=== PATIENT | female | born 1970 | race Caucasian/White ===

== ENCOUNTER 2019-09-20 10:56 | Inpatient (IN) | payer MEDICARE, MEDICAID ==
[~2019-09-20] VITALS: Ht 162.6 cm; Wt 76.2 kg
[2019-09-20] MEDS ORDERED: ZOLPIDEM TARTRATE 10 MG TABLET PO PRN (13:15)
[2019-09-20] MEDS: LORazepam 2 MG TABLET PO PRN (14:53)
[2019-09-20] MEDS: HALOPERIDOL 5 MG TABLET PO PRN (14:53)
[2019-09-20 16:09] VITALS: BP 127/70
[2019-09-20] MEDS ORDERED: PERMETHRIN 1% 60 ML LOTION TP ONE (18:00)
[2019-09-20] MEDS ORDERED: PERMETHRIN 5% 60 GM CREAM TP ONE (18:00)
[2019-09-21] MEDS ORDERED: LORazepam 2 MG/ML VIAL ONE (02:42)
[2019-09-21] MEDS ORDERED: DiphenhydrAMINE HCL 50 MG/ML VIAL ONE (02:42)
[2019-09-21] MEDS ORDERED: HALOPERIDOL LACTATE 5 MG/ML VIAL ONE (02:43)
[2019-09-21] MEDS ORDERED: LORazepam 2 MG/ML VIAL IM ONE (03:00)
[2019-09-21] MEDS ORDERED: DiphenhydrAMINE HCL 50 MG/ML VIAL IM ONE (03:00)
[2019-09-21] MEDS ORDERED: HALOPERIDOL LACTATE 5 MG/ML VIAL IM ONE (03:00)
[2019-09-21 03:22] VITALS: BP 138/82
[2019-09-21 08:34] VITALS: BP 114/80
[2019-09-21 08:52] LABS: BASOPHILS % (AUTO) 0.3 % (0.0-2.0); HEMATOCRIT 35.3 % (36-46); HEMOGLOBIN 11.6 g/dL (12.0-16.0); LYMPHOCYTES # (AUTO) 1.9 K/uL (1.0-4.8); LYMPHOCYTES % (AUTO) 37.4 % (22.0-44.0); MEAN CORPUSCULAR HEMOGLOBIN 27.3 pg (26.0-34.0); MEAN CORPUSCULAR HGB CONC 32.7 G/dL (31.0-37.0); MEAN CORPUSCULAR VOLUME 84 fL (80-100); MONOCYTES # (AUTO) 0.4 K/uL (0.1-1.0); MONOCYTES % (AUTO) 8.7 % (2.0-9.0); NEUTROPHILS # (AUTO) 2.4 K/uL (1.8-7.7); NEUTROPHILS % (AUTO) 45.6 % (40.0-70.0); PLATELET COUNT (AUTO) 245 K/uL (150-450); RED BLOOD CELL COUNT(AUTO) 4.23 MIL/uL (4.00-5.20); RED CELL DISTRIBUTION WIDTH 16.2 % (11.5-14.5)
[2019-09-21 09:46] LABS: ALANINE AMINOTRANSFERASE 31 U/L (12-78); ALKALINE PHOSPHATASE 78 U/L (46-116); ANION GAP 6 mmol/L (8-16); ASPARTATE AMINOTRANSFERASE 36 U/L (15-37); BILIRUBIN,TOTAL 0.3 mg/dL (0.1-1.0); CALCIUM, TOTAL 8.7 mg/dL (8.8-10.5); CARBON DIOXIDE 28 mmol/L (22-29); CHLORIDE 106 mmol/L (98-107); CHOL/HDL RATIO 3.2 (3.9-5.7); CHOLESTEROL 143 mg/dL (131-200); CREATININE 0.97 mg/dL (0.60-1.30); GLOMERULAR FILTR. RATE CALC > 60 mL/min (>60); GLUCOSE,RANDOM 95 mg/dL (70-110); HDL CHOLESTEROL 45 mg/dL (40-60); LDL CHOL (CALC.) 76 mg/dL (0-130); POTASSIUM 3.9 mmol/L (3.5-5.1); SODIUM SERUM 140 mmol/L (136-145); TOTAL PROTEIN, SERUM 6.5 g/dL (6.4-8.2); TRIGLYCERIDES 112 mg/dL (15-150); UREA NITROGEN, BLOOD 18 mg/dL (7-18)
[2019-09-21] MEDS: RisperiDONE 2 MG TABLET PO SCH ×2 (12:45→20:45)
[2019-09-21 13:51] LABS: HEMOGLOBIN A1C 5.5 % (3.8-5.6)
[2019-09-21] MEDS ORDERED: LOPERAMIDE HCL 2 MG CAPSULE PO PRN (14:00)
[2019-09-21] MEDS ORDERED: ACETAMINOPHEN 325 MG TABLET PO PRN (14:00)
[2019-09-21] MEDS ORDERED: CloNIDine HCL 0.1 MG TABLET PO PRN (14:00)
[2019-09-21] MEDS ORDERED: DOCUSATE SODIUM 100 MG CAPSULE PO PRN (14:00)
[2019-09-21] MEDS ORDERED: MAGNESIUM HYDROXIDE SUSPENSION 30 ML UDCUP PO PRN (14:00)
[2019-09-21] MEDS ORDERED: ONDANSETRON HCL 4 MG TABLET PO PRN (14:00)
[2019-09-21] MEDS ORDERED: PETROLATUM,WHITE 28 GM JELLY TP PRN (14:00)
[2019-09-21] MEDS ORDERED: ALBUTEROL SULFATE HFA 90 MCG/PUFF 8 GM INHALER IH PRN (14:00)
[2019-09-21] MEDS ORDERED: NICOTINE 14 MG/24 HOUR PATCH TD PRN (14:00)
[2019-09-21] MEDS ORDERED: MAG HYDROX/AL HYDROX/SIMETH ES 30 ML SUSPENSION UDCUP PO PRN (14:00)
[2019-09-21] MEDS ORDERED: IBUPROFEN 400 MG TABLET PO PRN (14:00)
[2019-09-21] MEDS ORDERED: GuaiFENesin/D-METHORPHAN [SUGAR-FREE] 200-20MG/10 ML SYRUP UDCUP PO PRN (14:00)
[2019-09-21 16:20] VITALS: BP 122/84
[2019-09-22] MEDS: RisperiDONE 2 MG TABLET PO SCH ×2 (08:04→20:13)
[2019-09-22] MEDS: LORazepam 2 MG TABLET PO PRN (08:04)
[2019-09-22] MEDS: HALOPERIDOL 5 MG TABLET PO PRN (08:05)
[2019-09-22 09:39] VITALS: BP 104/62
[2019-09-22 17:00] VITALS: BP 127/81
[2019-09-23 08:00] VITALS: BP 98/65
[2019-09-23] MEDS: RisperiDONE 2 MG TABLET PO SCH ×2 (11:31→21:08)
[2019-09-23] MEDS: HALOPERIDOL 5 MG TABLET PO PRN (15:51)
[2019-09-23] MEDS: LORazepam 2 MG TABLET PO PRN (15:51)
[2019-09-24] MEDS: RisperiDONE 2 MG TABLET PO SCH ×2 (08:31→20:28)
[2019-09-25] MEDS: RisperiDONE 2 MG TABLET PO SCH ×2 (08:28→20:07)
[2019-09-25] MEDS: LORazepam 2 MG TABLET PO PRN (10:29)
[2019-09-25] MEDS: HALOPERIDOL 5 MG TABLET PO PRN (16:15)
[2019-09-25 18:23] VITALS: BP 118/71
[2019-09-26 08:00] VITALS: BP 110/70
[2019-09-26] MEDS: RisperiDONE 2 MG TABLET PO SCH ×2 (08:24→20:31)
[2019-09-26 16:41] VITALS: BP 115/72
[2019-09-27 02:48] VITALS: BP 128/74
[2019-09-27] MEDS: HALOPERIDOL 5 MG TABLET PO PRN (09:18)
[2019-09-27] MEDS: RisperiDONE 2 MG TABLET PO SCH ×2 (09:18→20:03)
[2019-09-27] MEDS: LORazepam 2 MG TABLET PO PRN (09:19)
[2019-09-27 12:14] VITALS: BP 134/81
[2019-09-27] MEDS ORDERED: PALIPERIDONE PALMITATE 234 MG/1.5 ML SYRINGE IM ONE (15:45)
[2019-09-28] MEDS: RisperiDONE 2 MG TABLET PO SCH ×2 (08:26→20:10)
[2019-09-28 10:15] VITALS: BP 120/81
[2019-09-28] MEDS ORDERED: PALIPERIDONE PALMITATE 234 MG/1.5 ML SYRINGE IM ONE (10:45)
[2019-09-28 12:00] VITALS: BP 102/59
[2019-09-28] MEDS: HALOPERIDOL 5 MG TABLET PO PRN (15:50)
[2019-09-28 16:58] VITALS: BP 115/63
[2019-09-29] MEDS: RisperiDONE 2 MG TABLET PO SCH ×2 (08:28→20:12)
[2019-09-29 09:59] VITALS: BP_SYST 102; BP_SYST 120; BP_DIAS 61; BP_DIAS 78
[2019-09-29 13:20] VITALS: BP 112/77
[2019-09-29 16:46] VITALS: BP 120/78
[2019-09-30 08:33] VITALS: BP 125/82
[2019-09-30] MEDS: RisperiDONE 2 MG TABLET PO SCH ×2 (09:00→20:17)
[2019-09-30] MEDS: BENZTROPINE MESYLATE 1 MG TABLET PO SCH (20:17)
[2019-10-01] MEDS: RisperiDONE 2 MG TABLET PO SCH ×2 (08:19→20:31)
[2019-10-01] MEDS: BENZTROPINE MESYLATE 1 MG TABLET PO SCH ×2 (08:19→20:31)
[2019-10-01 09:00] VITALS: BP 121/73
[2019-10-01] MEDS ORDERED: PALIPERIDONE PALMITATE 156 MG/ML SYRINGE IM ONE (09:00)
[2019-10-01] MEDS: CEPHALEXIN MONOHYDRATE 500 MG CAPSULE PO SCH (18:05)
[2019-10-01 18:08] VITALS: BP 104/62
[2019-10-01 18:37] LABS: APPEARANCE,URINE CLEAR (CLEAR); BILIRUBIN,URINE NEGATIVE (NEGATIVE); GLUCOSE, URINE (UA) NEGATIVE (NEGATIVE); KETONES,URINE NEGATIVE (NEGATIVE); LEUKOCYTE ESTERASE ,URINE NEGATIVE (NEGATIVE); NITRATE,URINE NEGATIVE (NEGATIVE); OCCULT BLOOD,URINE NEGATIVE (NEGATIVE); PROTEIN,URINE NEGATIVE (NEGATIVE); UROBILINOGEN,URINE 0.2 mg/dL (<=1.0)
[2019-10-01 18:40] LABS: BACTERIA,URINE None Seen /HPF (None Seen); RBC,URINE None Seen /HPF (0-2); WBC,URINE None Seen /HPF (0-5)
[2019-10-01] MEDS ORDERED: ACETAMINOPHEN 325 MG TABLET PO PRN (21:45)
[2019-10-02] MEDS: RisperiDONE 2 MG TABLET PO SCH ×2 (08:20→20:29)
[2019-10-02] MEDS: CEPHALEXIN MONOHYDRATE 500 MG CAPSULE PO SCH ×3 (08:20→16:48)
[2019-10-02] MEDS: BENZTROPINE MESYLATE 1 MG TABLET PO SCH ×2 (08:20→20:29)
[2019-10-02 08:35] LABS: BASOPHILS % (AUTO) 0.5 % (0.0-2.0); EOSINOPHILS % (AUTO) 2.3 % (1.0-6.0); HEMATOCRIT 40.5 % (36-46); HEMOGLOBIN 13.5 g/dL (12.0-16.0); LYMPHOCYTES # (AUTO) 2.1 K/uL (1.0-4.8); LYMPHOCYTES % (AUTO) 26.6 % (22.0-44.0); MEAN CORPUSCULAR HEMOGLOBIN 27.4 pg (26.0-34.0); MEAN CORPUSCULAR HGB CONC 33.3 G/dL (31.0-37.0); MEAN CORPUSCULAR VOLUME 82 fL (80-100); MONOCYTES # (AUTO) 0.6 K/uL (0.1-1.0); MONOCYTES % (AUTO) 7.5 % (2.0-9.0); NEUTROPHILS # (AUTO) 4.9 K/uL (1.8-7.7); NEUTROPHILS % (AUTO) 63.1 % (40.0-70.0); PLATELET COUNT (AUTO) 248 K/uL (150-450); RED BLOOD CELL COUNT(AUTO) 4.91 MIL/uL (4.00-5.20)
[2019-10-02] MEDS ORDERED: PALIPERIDONE PALMITATE 156 MG/ML SYRINGE IM ONE (09:00)
[2019-10-02 09:02] VITALS: BP 94/66
[2019-10-02] MEDS ORDERED: PIPERONYL BUTOXIDE/PYRETHRINS 120 ML SHAMPOO TP ONE (11:15)
[2019-10-02 16:00] VITALS: BP 112/64
[2019-10-03] MEDS: BENZTROPINE MESYLATE 1 MG TABLET PO SCH ×2 (08:15→20:11)
[2019-10-03] MEDS: RisperiDONE 2 MG TABLET PO SCH ×2 (08:15→20:11)
[2019-10-03] MEDS: CEPHALEXIN MONOHYDRATE 500 MG CAPSULE PO SCH ×3 (08:15→16:22)
[2019-10-03 09:37] VITALS: BP 117/73
[2019-10-03 16:49] VITALS: BP 109/71
[2019-10-04 08:00] VITALS: BP 134/74
[2019-10-04] MEDS: RisperiDONE 2 MG TABLET PO SCH ×2 (09:42→20:07)
[2019-10-04] MEDS: BENZTROPINE MESYLATE 1 MG TABLET PO SCH ×2 (09:42→20:07)
[2019-10-04] MEDS: CEPHALEXIN MONOHYDRATE 500 MG CAPSULE PO SCH ×3 (09:42→17:35)
[2019-10-04] MEDS ORDERED: PIPERONYL BUTOXIDE/PYRETHRINS 120 ML SHAMPOO TP ONE (10:00)
[2019-10-04 16:00] VITALS: BP 107/69
[2019-10-05 08:00] VITALS: BP 112/75
[2019-10-05] MEDS: CEPHALEXIN MONOHYDRATE 500 MG CAPSULE PO SCH ×3 (08:19→16:38)
[2019-10-05] MEDS: RisperiDONE 2 MG TABLET PO SCH ×2 (08:19→20:23)
[2019-10-05] MEDS: BENZTROPINE MESYLATE 1 MG TABLET PO SCH ×2 (08:19→20:23)
[2019-10-05 16:00] VITALS: BP 122/75
[2019-10-05] MEDS ORDERED: PERMETHRIN 1% 60 ML LOTION TP ONE (21:30)
[2019-10-06 08:00] VITALS: BP 109/61
[2019-10-06] MEDS: CEPHALEXIN MONOHYDRATE 500 MG CAPSULE PO SCH ×3 (08:54→16:47)
[2019-10-06] MEDS: BENZTROPINE MESYLATE 1 MG TABLET PO SCH ×2 (08:54→20:22)
[2019-10-06] MEDS: RisperiDONE 2 MG TABLET PO SCH ×2 (08:54→20:22)
[2019-10-06 16:00] VITALS: BP 134/78
[2019-10-07] MEDS: RisperiDONE 2 MG TABLET PO SCH ×2 (08:06→20:09)
[2019-10-07] MEDS: BENZTROPINE MESYLATE 1 MG TABLET PO SCH ×2 (08:06→20:09)
[2019-10-07] MEDS: CEPHALEXIN MONOHYDRATE 500 MG CAPSULE PO SCH ×3 (08:07→15:59)
[2019-10-07 08:43] VITALS: BP 100/62
[2019-10-07 16:38] VITALS: BP 108/69
[2019-10-08 08:00] VITALS: BP 112/78
[2019-10-08] MEDS: RisperiDONE 2 MG TABLET PO SCH ×2 (08:21→20:33)
[2019-10-08] MEDS: BENZTROPINE MESYLATE 1 MG TABLET PO SCH ×2 (08:21→20:33)
[2019-10-08 16:00] VITALS: BP 120/83
[2019-10-09 08:00] VITALS: BP 107/77
[2019-10-09] MEDS: BENZTROPINE MESYLATE 1 MG TABLET PO SCH ×2 (08:32→20:41)
[2019-10-09] MEDS: RisperiDONE 2 MG TABLET PO SCH ×2 (08:32→20:41)
[2019-10-09] MEDS ORDERED: PERMETHRIN 1% 60 ML LOTION TP ONE (15:30)
[2019-10-09 16:15] VITALS: BP 127/85
[2019-10-10] MEDS: RisperiDONE 2 MG TABLET PO SCH ×2 (08:27→20:23)
[2019-10-10] MEDS: BENZTROPINE MESYLATE 1 MG TABLET PO SCH ×2 (08:27→20:23)
[2019-10-10 09:19] VITALS: BP 106/70
[2019-10-10 16:49] VITALS: BP 107/67
[2019-10-11] MEDS: BENZTROPINE MESYLATE 1 MG TABLET PO SCH ×2 (08:46→20:07)
[2019-10-11] MEDS: RisperiDONE 2 MG TABLET PO SCH ×2 (08:46→20:07)
[2019-10-11 08:57] VITALS: BP 111/70
[2019-10-11 16:00] VITALS: BP 99/60
[2019-10-12 08:00] VITALS: BP 103/75
[2019-10-12] MEDS: BENZTROPINE MESYLATE 1 MG TABLET PO SCH ×2 (08:03→20:23)
[2019-10-12] MEDS: RisperiDONE 2 MG TABLET PO SCH ×2 (08:03→20:23)
[2019-10-12 17:02] VITALS: BP 110/81
[2019-10-13 08:00] VITALS: BP 101/65
[2019-10-13] MEDS: BENZTROPINE MESYLATE 1 MG TABLET PO SCH ×2 (08:29→20:55)
[2019-10-13] MEDS: RisperiDONE 2 MG TABLET PO SCH ×2 (08:29→20:55)
[2019-10-13 16:00] VITALS: BP 97/65
[2019-10-14 08:00] VITALS: BP 137/85
[2019-10-14] MEDS: BENZTROPINE MESYLATE 1 MG TABLET PO SCH ×2 (08:22→21:11)
[2019-10-14] MEDS: RisperiDONE 2 MG TABLET PO SCH ×2 (08:22→21:11)
[2019-10-14 16:05] VITALS: BP 80/65
[2019-10-15 08:00] VITALS: BP 100/65
[2019-10-15] MEDS: RisperiDONE 2 MG TABLET PO SCH ×2 (08:29→22:18)
[2019-10-15] MEDS: BENZTROPINE MESYLATE 1 MG TABLET PO SCH ×2 (08:29→22:17)
[2019-10-15] MEDS ORDERED: PERMETHRIN 1% 60 ML LOTION TP ONE (14:45)
[2019-10-15 17:07] VITALS: BP 118/70
[2019-10-16 08:00] VITALS: BP 97/56
[2019-10-16] MEDS: BENZTROPINE MESYLATE 1 MG TABLET PO SCH ×2 (08:57→20:01)
[2019-10-16] MEDS: RisperiDONE 2 MG TABLET PO SCH ×2 (08:57→20:01)
[2019-10-16 16:16] VITALS: BP 115/72
[2019-10-17 08:00] VITALS: BP 105/63
[2019-10-17] MEDS: BENZTROPINE MESYLATE 1 MG TABLET PO SCH ×2 (08:26→20:50)
[2019-10-17 16:43] VITALS: BP 112/81
[2019-10-18 08:00] VITALS: BP 122/69
[2019-10-18] MEDS: BENZTROPINE MESYLATE 1 MG TABLET PO SCH ×2 (08:07→20:21)
[2019-10-18 16:00] VITALS: BP 116/75
[2019-10-19] MEDS: BENZTROPINE MESYLATE 1 MG TABLET PO SCH ×2 (08:23→20:18)
[2019-10-19 09:44] VITALS: BP 104/69
[2019-10-19 16:00] VITALS: BP 102/60
[2019-10-20] MEDS: BENZTROPINE MESYLATE 1 MG TABLET PO SCH ×2 (08:16→20:17)
[2019-10-20 09:24] VITALS: BP 106/68
[2019-10-20 16:00] VITALS: BP 119/77
[2019-10-21 08:00] VITALS: BP 134/76
[2019-10-21] MEDS: BENZTROPINE MESYLATE 1 MG TABLET PO SCH ×2 (08:08→21:45)
[2019-10-21 16:23] VITALS: BP 101/66
[2019-10-22 08:00] VITALS: BP 105/76
[2019-10-22] MEDS: BENZTROPINE MESYLATE 1 MG TABLET PO SCH ×2 (08:46→20:05)
[2019-10-22 16:53] VITALS: BP 105/74
[2019-10-23 08:00] VITALS: BP 136/84
[2019-10-23] MEDS: BENZTROPINE MESYLATE 1 MG TABLET PO SCH (08:29)
[2019-10-23] MEDS ORDERED: PALI234D IM (09:28)
[2019-10-23] MEDS ORDERED: BENZ1TAB10 PO (09:28)
[2019-10-30] MEDS ORDERED: PALIPERIDONE PALMITATE 234 MG/1.5 ML SYRINGE IM SCH (09:00)
== END 2019-10-23 14:30 | disposition home or self-care (01) | DRG 885 ==
LOC: B2X 13:36 → 3EX 09-21 18:51
DX: F25.0 Schizoaffective disorder, bipolar type (principal); D64.9 Anemia, unspecified; F10.10 Alcohol abuse, uncomplicated; F17.210 Nicotine dependence, cigarettes, uncomplicated; Z59.0 Homelessness; Y90.9 Presence of alcohol in blood, level not specified; G47.00 Insomnia, unspecified; F41.9 Anxiety disorder, unspecified; F19.10 Other psychoactive substance abuse, uncomplicated; R10.13 Epigastric pain; Z91.19 Patient's noncompliance with other medical treatment and regimen; B85.0 Pediculosis due to Pediculus humanus capitis; K59.00 Constipation, unspecified; R53.83 Other fatigue; Z20.828 Contact with and (suspected) exposure to other viral communicable diseases
CPT/HCPCS: 83036; 87081; G0378; J1200; J1630; J2060; 36415-L1; 36415-TC; 71046; 71046-TC; 80061-TC; 87635